=== PATIENT | male | born 1955 | race Caucasian/White ===

== ENCOUNTER 2018-12-19 15:29 | Emergency (ER) | payer BC ==
[2018-12-19] MEDS ORDERED: Diphtheria,Pertussis(Acell),Tetanus Vaccine 0.5 ML SDV IM ONE (15:50)
[2018-12-19] MEDS ORDERED: Bacitracin Oint 1 GM U/D Packet TOP ONE (15:50)
[2018-12-19] MEDS ORDERED: Lidocaine 1% 30 ML SDV INJECT ONE (15:50)
--- NOTE | 2018-12-19 15:51 | EDM.PDOC ---
ED HPI GENERAL MEDICAL PROBLEM - General Chief Complaint: Laceration Stated Complaint: FISH HOOK IN HAND [id number] Time Seen by Provider: 12/19/18 15:51 Source of Information: Reports: Patient, RN, RN Notes Reviewed History Limitations: Reports: No Limitations - History of Present Illness INITIAL COMMENTS - FREE TEXT/NARRATIVE: [place] presents to ER with a fish hook in the dorsum of the right hand. Pt denies any other injury. He thinks his last Tetanus vaccine was more than 10 years ago. Onset: Today Duration: Constant Quality: Reports: Ache Severity: Mild Worsens with: Reports: None Associated Symptoms: Reports: No Other Symptoms Right Hand Pain Score (Numeric/FACES): 0 - Related Data Allergies Allergy/AdvReac Type Severity Reaction Status Date / Time No Known Allergies Allergy Verified 12/19/18 15:50 Home Meds: Home Meds Losartan [Cozaar] 50 mg PO DAILY 12/19/18 [History] Metoprolol Succinate/HCTZ [Metoprolol ER-Hctz 100-12.5 mg] 100 mg PO DAILY 12/19 [History] amLODIPine [Norvasc] 5 mg PO DAILY 12/19/18 [History] atorvaSTATin Calcium [Atorvastatin Calcium] 40 mg PO DAILY 12/19/18 [History] Past Medical History HEENT History: Reports: Impaired Vision Cardiovascular History: Reports: High Cholesterol, Hypertension Respiratory History: Reports: None Gastrointestinal History: Reports: None Genitourinary History: Reports: None Musculoskeletal History: Reports: None Neurological History: Reports: None Psychiatric History: Reports: None Endocrine/Metabolic History: Reports: None Hematologic History: Reports: None Immunologic History: Reports: None Oncologic (Cancer) History: Reports: None Dermatologic History: Reports: None - Infectious Disease History Infectious Disease History: Reports: None - Past Surgical History Head Surgeries/Procedures: Reports: None Social & Family History - Tobacco Use Smoking Status *Q: Never Smoker Second Hand Smoke Exposure: No - Caffeine Use Caffeine Use: Reports: Soda - Recreational Drug Use Recreational Drug Use: No - Living Situation & Occupation Occupation: Retired ED ROS GENERAL - Review of Systems Review Of Systems: ROS reveals no pertinent complaints other than HPI. ED EXAM, SKIN/RASH Exam: See Below Exam Limited By: No Limitations General Appearance: Alert, WD/WN, No Apparent Distress Head: Atraumatic, Normocephalic Respiratory/Chest: No Respiratory Distress Extremities: Normal Range of Motion, Normal Capillary Refill, Other (Fish hook in dorsum of right hand, no signs of infection.). No: Increased Warmth, Redness Neurological: Alert, Oriented, No Motor/Sensory Deficits Psychiatric: Normal Mood Skin: Warm, Dry Course - Vital Signs Last Recorded V/S: Last Vital Signs Temp 98.1 F 12/19/18 15:45 Pulse 84 12/19/18 16:11 Resp 18 12/19/18 16:11 BP 125/90 12/19/18 16:11 Pulse Ox 97 12/19/18 16:11 - Orders/Labs/Meds Orders: Active Orders 24 hr Category Date Time Status Vaccines to be Administered [RC] PER UNIT ROUTINE Care 12/19/18 15:51 Active Meds: Medications Discontinued Medications Generic Name Dose Route Start Last Admin Trade Name Freq PRN Reason Stop Dose Admin Bacitracin 1 dose 12/19/18 15:50 12/19/18 15:57 Bacitracin Oint 1 Gm TOP 12/19/18 15:51 1 dose ONETIME ONE Administration Diphtheria/Tetanus/Acell Pertussis 0.5 ml 12/19/18 15:50 12/19/18 15:57 Adacel IM 12/19/18 15:51 0.5 ml .ONCE ONE Administration Lidocaine HCl 30 ml 12/19/18 15:50 12/19/18 15:58 Xylocaine-Mpf 1% INJECT 12/19/18 15:51 10 ml ONETIME ONE Administration - Re-Assessments/Exams Free Text/Narrative Re-Assessment/Exam: 12/19/18 16:08 Fish hook removal right hand. Area cleaned and prepped by RN with hibiclens and sterile water. Area of fish hook locally blocked with lidocaine 1% 5cc. Using clean tech. the eye of the hook and lure were cut free and removed with side cutter. The hook shank grasped with needle nosed plier and advanced until the hook and marianela were exposed through the skin and removed with side cutter. The remaining hook backed out the entry wound. No residual foreign body. Wound was cleansed, and dried, bacitracin ointment applied, and dressing by RN. No complications. Departure - Departure Time of Disposition: 16:09 Disposition: Home, Self-Care 01 Condition: Good Clinical Impression: Fish hook injury of right hand Qualifiers: Encounter type: initial encounter Qualified Code(s): S69.91XA - Unspecified injury of right wrist, hand and finger(s), initial encounter - Discharge Information *PRESCRIPTION DRUG MONITORING PROGRAM REVIEWED*: No *COPY OF PRESCRIPTION DRUG MONITORING REPORT IN PATIENT TATUM: No Instructions: Puncture Wound, [id number] Forms: ED Department Discharge Additional Instructions: Rx: Cephalexin 500mg Follow up in clinic if any signs of infection develop. Watch out for fish hooks! - My Orders Last 24 Hours: My Active Orders 12/19/18 15:51 Vaccines to be Administered [RC] PER UNIT ROUTINE - Assessment/Plan Last 24 Hours: My Active Orders 12/19/18 15:51 Vaccines to be Administered [RC] PER UNIT ROUTINE
== END 2018-12-19 16:16 | disposition home or self-care (01) ==
LOC: DL.ED 15:29
DX: S60.551A Superficial foreign body of right hand, initial encounter (principal); I10 Essential (primary) hypertension; W45.8XXA Other foreign body or object entering through skin, initial encounter
CPT/HCPCS: 90471; 90715; 96372; 99282; J2001